=== PATIENT | female | born 2000 | race Caucasian/White ===

== ENCOUNTER 2022-04-14 04:48 | Inpatient (IN) | payer OTHER ==
[2022-04-14 05:13] LABS: Urine Blood 2+ (Negative); Urine Glucose Negative (Negative); Urine Protein 3+ (Negative); Urine Specific Gravity >=1.030 (1.005-1.030)
[2022-04-14 05:31] LABS: Urine Bacteria <20 /HPF (<20); Urine Mucus 1+ /HPF (None Seen)
[2022-04-14 05:37] LABS: Absolute Lymphocytes (CBC) 5.1 K/uL (0.7-4.9); Hematocrit 45.9 % (36.0-45.0); Lymphocytes % 40.3 % (15.3-44.8); MCV 83.5 fL (80-100); MPV 6.7 fL (7.6-11.3); RBC Red Blood Cell Count 5.51 M/uL (3.86-4.86)
[2022-04-14 05:50] LABS: Albumin 3.3 g/dL (3.4-5.0); Bilirubin Total 0.2 mg/dL (0.2-1.0); Potassium 4.3 mmol/L (3.5-5.1); Protein, Total 7.7 g/dL (6.4-8.2)
[2022-04-14] MEDS ORDERED: CEFTRIAXONE 1000 MG/VIAL ONE (06:19)
[2022-04-14] MEDS ORDERED: NA CHLORIDE 0.9% 1,000 ML ONE (06:20)
[2022-04-14] MEDS ORDERED: NA CHLORIDE 0.9% 50 ML IV ONE (06:20)
--- NOTE | 2022-04-14 06:29 | EDPHYS ---
Physician Documentation [facility] Name: Shanti Bobby Age: 21 yrs Sex: Female : 2000 Arrival Date: 04/14/2022 Time: 04:49 Bed 7 Private MD: ED Physician Sawyer Glover HPI: 04/14 04:59 This 21 yrs old Female presents to ER via EMS with complaints of abd pain. rn 04:59 The patient presents with abdominal pain in the left lower quadrant. Onset: The rn symptoms/episode began/occurred last night. The symptoms radiate to left back. Associated signs and symptoms: Pertinent positives: nausea, Pertinent negatives: blood in stools, fever, vaginal discharge, vomiting. The symptoms are described as sharp, stabbing. Modifying factors: The symptoms are alleviated by nothing, the symptoms are aggravated by touching the area. Severity of pain: At its worst the pain was moderate in the emergency department the pain is unchanged. The patient has not experienced similar symptoms in the past. The patient has not recently seen a physician. LMP November, no hx of kidney stones, no trauma. NO fever/vomiting/diarrhea.. 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 - Social history:: Smoking status: Patient reports the use of cigarette tobacco products, smokes one-half pack cigarettes per day, Patient uses alcohol, occasionally. street drugs, delta 10. - Family history:: not pertinent. - Hospitalizations: : No recent hospitalization is reported. ROS: 04:59 Constitutional: Negative for fever, chills, and weight loss, Eyes: Negative for injury, rn pain, redness, and discharge, Neck: Negative for injury, pain, and swelling, Cardiovascular: Negative for chest pain, palpitations, and edema, Respiratory: Negative for shortness of breath, cough, wheezing, and pleuritic chest pain, Abdomen/GI: + abd pain/nausea Back: Negative for injury : Negative for injury, bleeding, discharge, and swelling, MS/Extremity: Negative for injury and deformity, Skin: Negative for injury, rash, and discoloration, Neuro: Negative for headache, weakness, numbness, tingling, and seizure. Exam: 04:59 Constitutional: Overweight female, appears in pain, ambulatory to room Head/Face: rn Normocephalic, atraumatic. Cardiovascular: Tachycardic, regular Respiratory: No increased work of breathing, no retractions or nasal flaring. Abdomen/GI: soft, + tendern LLQ, no rebound Skin: Warm, dry MS/ Extremity: Pulses equal, no cyanosis. Neuro: Awake and alert, GCS 15 Vital Signs: 04:49 BP 138 / 88; Pulse 121; Resp 18 S; Temp 98.7(O); Pulse Ox 98% on R/A; Weight 163.29 kg lg3 (R); Height 5 ft. 9 in. (175.26 cm) (R); Pain 10/10; 06:19 BP 136 / 98; Pulse 112; Resp 16; Pulse Ox 97% on R/A; lg3 07:45 BP 114 / 75; Pulse 103; Resp 22; Temp 98.8; Pulse Ox 96% on R/A; vg1 04:49 Body Mass Index 53.16 (163.29 kg, 175.26 cm) lg3 MDM: 04:50 Patient medically screened. rn 06:13 ED course: Pt with elevated lactate, now meets severe sepsis criteria, source UTI, SIRS rn tachycardia and elevated WBC, (C) end organ damage is elevated at 2.1. . ED course: Abx ordered after cultures and lactate obtained. . 06:27 Differential diagnosis: Pyelonephritis, Ureterolithiasis, urinary tract infection. Data rn reviewed: vital signs, nurses notes, lab test result(s), radiologic studies, CT scan, and as a result, I will admit patient. Counseling: I had a detailed discussion with the patient and/or guardian regarding: the historical points, exam findings, and any diagnostic results supporting the discharge/admit diagnosis, lab results, radiology results, the need for further work-up and treatment in the hospital. Admission orders: after a detailed discussion of the patient's condition and case, the admit orders are written by me. 04/14 04:53 Order name: CBC with Diff; Complete Time: 05:49 rn 04/14 04:53 Order name: CMP; Complete Time: 06:00 rn 04/14 04:53 Order name: Lipase; Complete Time: 06:00 rn 04/14 04:53 Order name: Urine Microscopic Only; Complete Time: 05:36 rn 04/14 05:13 Order name: Urine Dipstick-Ancillary; Complete Time: 05:36 EDMS 04/14 05:20 Order name: Blood Culture Adult (2) rn 04/14 05:20 Order name: Lactate; Complete Time: 06:13 rn 04/14 05:36 Order name: Urine Culture rn 04/14 05:38 Order name: Urine Culture EDWY 04/14 06:47 Order name: SARS RAPID lg3 04/14 07:32 Order name: T4 Free EDWY 04/14 07:32 Order name: Thyroid Stimulating Hormone EDWY 04/14 07:32 Order name: CBC with Automated Diff EDWY 04/14 04:53 Order name: IV Saline Lock; Complete Time: 05:16 rn 04/14 04:53 Order name: Labs collected and sent; Complete Time: 05:16 rn 04/14 04:53 Order name: Urine Dipstick-Ancillary (obtain specimen); Complete Time: 05:14 rn 04/14 04:53 Order name: Urine Test (obtain specimen); Complete Time: 05:15 rn 04/14 05:14 Order name: CT Stone Protocol 04/14 07:32 Order name: Regular EDWY 04/14 07:32 Order name: CBC with Automated Diff EDWY 04/14 07:32 Order name: Comprehensive Metabolic Panel ED[facility]Y 04/14 07:32 Order name: Comprehensive Metabolic Panel ED[facility]Y 04/14 07:32 Order name: Magnesium EDMS 04/14 07:32 Order name: Magnesium EDWY 04/14 07:32 Order name: Hemoglobin A1c EDWY Administered Medications: 06:28 Drug: NS 0.9% 1000 ml Route: IV; Rate: 1000 ml; Site: right antecubital; as6 08:06 Follow up: IV Status: Completed infusion; IV Intake: 1000ml vg1 06:28 Drug: Rocephin (cefTRIAXone) 1 grams Route: IV; Rate: calculated rate; Site: right as6 antecubital; 07:54 Follow up: Response: No adverse reaction; IV Status: Completed infusion vg1 Disposition Summary: 04/14/22 06:28 Hospitalization Ordered Hospitalization Status: Inpatient Admission rn Provider: Jim Glover rn Location: Telemetry/MedSurg (Inpatient) rn Condition: Stable rn Problem: new rn Symptoms: have improved rn Bed/Room Type: Standard rn Room Assignment: 216(04/14/22 08:03) eb Diagnosis - Severe sepsis without septic shock rn - UTI/ Urinary tract infection, site not specified rn - Pyelonephritis acute rn Forms: - Medication Reconciliation Form rn - SBAR form corporate legal intern time excluding procedures: 06:27 Critical care time: Bedside Care: 30 minutes, Consultation: 5 minutes. Total time: 35 rn minutes Signatures: Dispatcher [employer] EDMS Sawyer Glover MD MD rn Botello, Elizabeth eb Gibson, Lacie, RN RN lg3 Charlie Hurd RN RN as6 Faiza Garcia RN vg1 Corrections: (The following items were deleted from the chart) 08:03 06:28 rn eb
--- NOTE | 2022-04-14 06:29 | ER ---
Nurse's Notes [facility] Name: Shanti Bobby Age: 21 yrs Sex: Female : 2000 Arrival Date: 04/14/2022 Time: 04:49 Bed 7 Private MD: Diagnosis: Severe sepsis without septic shock;UTI/ Urinary tract infection, site not specified;Pyelonephritis acute Presentation: 04/14 04:49 Chief complaint: Patient states: left lower abdominal pain radiating to the back lg3 starting around 0300. pain 10/10. described as constant stabbing pain. last menstrual cycle in November. denies fever. Coronavirus screen: Client denies travel out of the [place] in the last 14 days. At this time, the client does not indicate any symptoms associated with coronavirus-19. Ebola Screen: No symptoms or risks identified at this time. Initial Sepsis Screen: Does the patient meet any 2 criteria? No. Patient's initial sepsis screen is negative. Does the patient have a suspected source of infection? No. Patient's initial sepsis screen is negative. Risk Assessment: Do you want to hurt yourself or someone else? Patient reports no desire to harm self or others. Onset of symptoms was April 14, 2022 at 03:00. 04:49 Method Of Arrival: EMS lg3 04:49 Acuity: SETH 3 lg3 Triage Assessment: 04:54 General: Appears in no apparent distress. uncomfortable, Behavior is cooperative, lg3 crying. Pain: Complains of pain in left lower quadrant Pain radiates to back Pain currently is 10 out of 10 on a pain scale. Quality of pain is described as crushing, shooting, stabbing, Is continuous. EENT: No deficits noted. No signs and/or symptoms were reported regarding the EENT system. Neuro: No deficits noted. Lobo Agitation-Sedation Scale (RASS): 0 - Alert and Calm Level of Consciousness is awake, alert, obeys commands, Oriented to person, place, time, situation. Cardiovascular: No deficits noted. Denies chest pain, shortness of breath, Capillary refill < 3 seconds Clubbing of nail beds is absent JVD is absent Patient's skin is warm and dry. Respiratory: No deficits noted. Airway is patent Trachea midline Respiratory effort is even, unlabored, Respiratory pattern is regular, symmetrical, Breath sounds are clear bilaterally. GI: Abdomen is round non-distended, obese, Bowel sounds present X 4 quads. Abd is soft X 4 quads Abdomen is tender to palpation in left lower quadrant Reports lower abdominal pain, nausea. : No deficits noted. No signs and/or symptoms were reported regarding the genitourinary system. Derm: No deficits noted. No signs and/or symptoms reported regarding the dermatologic system. Skin is intact, is healthy with good turgor, Skin is dry, Skin is normal, Skin temperature is warm. Musculoskeletal: No deficits noted. No signs and/or symptoms reported regarding the musculoskeletal system. Circulation, motion, and sensation intact. Range of motion: intact in all extremities. 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 - Social history:: Smoking status: Patient reports the use of cigarette tobacco products, smokes one-half pack cigarettes per day, Patient uses alcohol, occasionally. street drugs, delta 10. - Family history:: not pertinent. - Hospitalizations: : No recent hospitalization is reported. Screenin:58 Abuse screen: Denies threats or abuse. Denies injuries from another. Nutritional lg3 screening: No deficits noted. Tuberculosis screening: No symptoms or risk factors identified. Fall Risk None identified. Assessment: 04:57 General: see triage assessment . lg3 06:19 Reassessment: Patient appears in no apparent distress at this time. No changes from lg3 previously documented assessment. Patient and/or family updated on plan of care and expected duration. Pain level reassessed. Patient is alert, oriented x 3, equal unlabored respirations, skin warm/dry/pink. 07:53 General: Appears in no apparent distress. comfortable, Behavior is calm, cooperative. vg1 Pain: Complains of pain in posterior aspect of left lateral abdomen and left lower quadrant Pain currently is 4 out of 10 on a pain scale. Pain began 1 day ago. Neuro: Level of Consciousness is awake, alert, obeys commands, Oriented to person, place, time, situation. Cardiovascular: Patient's skin is warm and dry. Respiratory: Airway is patent Respiratory effort is even, unlabored, Respiratory pattern is tachypnea. GI: No signs and/or symptoms were reported involving the gastrointestinal system. : Denies burning with urination, urinary frequency. EENT: No signs and/or symptoms were reported regarding the EENT system. Derm: Skin is pink, warm \T\ dry. Musculoskeletal: Circulation, motion, and sensation intact. 08:06 Reassessment: attempted to call report. vg1 Vital Signs: 04:49 BP 138 / 88; Pulse 121; Resp 18 S; Temp 98.7(O); Pulse Ox 98% on R/A; Weight 163.29 kg lg3 (R); Height 5 ft. 9 in. (175.26 cm) (R); Pain 10/10; 06:19 BP 136 / 98; Pulse 112; Resp 16; Pulse Ox 97% on R/A; lg3 07:45 BP 114 / 75; Pulse 103; Resp 22; Temp 98.8; Pulse Ox 96% on R/A; vg1 04:49 Body Mass Index 53.16 (163.29 kg, 175.26 cm) lg3 ED Course: 04:49 Patient arrived in ED. lg3 04:49 Debbi Beck is Primary Nurse. tw5 04:50 Sawyer Glover MD is Attending Physician. rn 04:54 Triage completed. lg3 04:54 Arm band placed on right wrist. lg3 04:58 Patient has correct armband on for positive identification. Placed in gown. Bed in low lg3 position. Call light in reach. Side rails up X 1. Client placed on continuous cardiac and pulse oximetry monitoring. NIBP monitoring applied. Door closed. Noise minimized. Warm blanket given. 05:10 Inserted saline lock: 20 gauge in right antecubital area, using aseptic technique. as6 Blood collected. 05:15 Urine Microscopic Only Sent. lg3 05:16 CBC with Diff Sent. lg3 05:16 CMP Sent. lg3 05:16 Lipase Sent. lg3 05:35 Lactate Sent. lg3 05:35 Blood Culture Adult (2) Sent. lg3 05:54 CT Stone Protocol In Process Unspecified. EDMS 06:17 Urine Culture Sent. lg3 06:27 Jim Glover MD is Hospitalizing Provider. rn 07:32 Primary Nurse role handed off by Debbi Beck vg1 07:32 Faiza Garcia, RN is Primary Nurse. vg1 08:16 No provider procedures requiring assistance completed. Patient admitted, IV remains in vg1 place. Administered Medications: 06:28 Drug: NS 0.9% 1000 ml Route: IV; Rate: 1000 ml; Site: right antecubital; as6 08:06 Follow up: IV Status: Completed infusion; IV Intake: 1000ml vg1 06:28 Drug: Rocephin (cefTRIAXone) 1 grams Route: IV; Rate: calculated rate; Site: right as6 antecubital; 07:54 Follow up: Response: No adverse reaction; IV Status: Completed infusion vg1 Medication: 06:28 VIS not applicable for this client. as6 Intake: 08:06 IV: 1000ml; Total: 1000ml. vg1 Outcome: 06:28 Decision to Hospitalize by Provider. rn 08:15 Admitted to Med/surg accompanied by tech, via wheelchair, room 216, with chart, Report vg1 called to Tamika KASPER 08:15 Condition: good 08:15 Discharge instructions given to patient, Instructed on the need for admit. 08:29 Patient left the ED. vg1 Signatures: Dispatcher [employer] EDMS Sawyer Glover MD MD rn Gibson, Lacie, RN RN lg3 Faiza Garcia, RN RN vg1 Debbi Beck tw5 Charlie Hurd RN RN as6
[2022-04-14 07:10] LABS: SARS-CoV-2 Antigen Rapid Res Negative (Negative)
[2022-04-14] MEDS ORDERED: ONDANSETRON 4 MG/2 ML VIAL IV PRN ×2 (07:28→07:32)
--- NOTE | 2022-04-14 07:35 | P.HP ---
Certification for Inpatient Patient admitted to: Inpatient With expected LOS: >2 Midnights Practitioner: I am a practitioner with admitting privileges, knowledge of patient current condition, hospital course, and medical plan of care. Services: Services provided to patient in accordance with Admission requirements found in Title 42 Section 412.3 of the Code of Federal Regulations Patient History Date of Service: 04/14/22 Reason for admission: sepsis, acute pyelo History of Present Illness: 21yo F, PMH: RA Presents to ED due to 1 day of left abdominal/flank pain. Pain worse with movement. Nothing has helped. Left lower abdomen and radiates towards back. No nausea/vomiting, +Chills. Denies any sick contacts. Never had pain like this before. Workup in ED consistent with sepsis secondary to UTI. Cultures obtained, started rocephin, and IV fluids. Allergies No Known Allergies Allergy (Unverified 04/14/22 08:14) Home Medications: NK [No Home Meds] 04/14/22 - Past Medical/Surgical History -: RA Past Surgical History: Patient denies surgical history - Family History Family History: Reviewed- Non-Contributory - Social History Smoking Status: Current every day smoker Alcohol use: Yes Place of Residence: Home Review of Systems 10-point ROS is otherwise unremarkable Physical Examination - Physical Exam General: Alert, Mild distress HEENT: EOMI, Sclerae nonicteric Neck: Supple, No LAD Respiratory: Clear to auscultation bilaterally, Normal air movement Cardiovascular: No edema, Regular rate/rhythm Capillary refill: <2 Seconds Gastrointestinal: Soft and benign, Tenderness (LLQ/L flank) Musculoskeletal: No erythema, No tenderness Integumentary: No rashes, No significant lesion Neurological: Normal speech, Normal strength at 5/5 x4 extr, Normal affect - Studies Laboratory Data (last 24 hrs) 04/14/22 05:14: Sodium 137, Potassium 4.3, BUN 15, Creatinine 0.72, Glucose 110 H, Total Bilirubin 0.2, AST 31, ALT 68, Alkaline Phosphatase 58, Lipase 98 04/14/22 05:14: WBC 12.80 H, Hgb 15.3 H, Hct 45.9 H, Plt Count 363 Assessment and Plan - Advance Directives Does patient have a Living Will: No Does patient have a Durable POA for Healthcare: No Physician Review Additional Text: Problem List Acute pyelonephritis Sepsis, without septic shock cultures obtained in ED tachycardic, leukocytosis, lactic acidosis f/u repeat lactate - improved s/p 1L bolus IV rocephin IVF pain meds as needed f/u cultures VTE: lovenox Code: full Dispo: home, 2-3 days Time Spent Managing Pts Care (In Minutes): 70
[2022-04-14 08:54] LABS: Thyroid Stimulating Hormone 5.9 uIU/mL (0.360-3.740)
[2022-04-14] MEDS: ENOXAPARIN 40 MG/0.4 ML SQ SCH (09:00)
[2022-04-14] MEDS: MORPHINE 2 MG/ML SYR IV PRN ×3 (09:53→21:15)
[2022-04-14 10:07] VITALS: BMI 53.1
[2022-04-14] MEDS: Ringers Lactate 1,000 ML IV SCH (21:18)
[2022-04-15 03:34] LABS: Absolute Lymphocytes (CBC) 3.5 K/uL (0.7-4.9); Lymphocytes % 34.8 % (15.3-44.8); MCV 82.8 fL (80-100); MPV 6.8 fL (7.6-11.3); RBC Red Blood Cell Count 5.07 M/uL (3.86-4.86)
[2022-04-15 03:51] LABS: Bilirubin Total 0.4 mg/dL (0.2-1.0); Magnesium 1.9 mg/dL (1.8-2.4); Potassium 4.2 mmol/L (3.5-5.1); Protein, Total 7.1 g/dL (6.4-8.2)
[2022-04-15] MEDS: Ringers Lactate 1,000 ML IV SCH (04:58)
[2022-04-15] MEDS: HYDROCODONE/APAP 5/325 MG TAB PO PRN ×2 (05:06→12:08)
--- NOTE | 2022-04-15 06:31 | P.PN ---
Date of Service: 04/15/22 Subjective: requiring IV pain medication but pain overall improving no nausea/vomiting afebrile overnight ROS: 10 point ROS as noted above, otherwise negative Physical exam GEN: Alert, oriented, NAD, obese HEENT: Normal conjunctiva, sclera anicteric CV: Regular rate and rhythm, no edema Pulm: Nonlabored respirations on room air ABD: Soft, mildmoderate tenderness of left flank Neuro: Normal speech, normal affect Vitals reviewed Problem List Acute L pyelonephritis Sepsis, without septic shock Acute L pyelonephritis Urine Cx: +GNR Blood Cx: prelim negative vitals improved, slightly tachy still pain improving tolerating PO, dc IVF Continue IV Rocephin Pain medication as needed VTE: Xarelto DVT prophylaxis Code: full Dispo: home, 1-2 days Time Spent Managing Pts Care (In Minutes): 35
[2022-04-15] MEDS ORDERED: CEFTRIAXONE 1000 MG/VIAL ONE (08:08)
[2022-04-15] MEDS ORDERED: NA CHLORIDE 0.9% 50 ML ONE (08:15)
[2022-04-15] MEDS: CEFTRIAXONE 1,000 MG in NA CHLORIDE 0.9% 50 ML IVPB SCH (08:46)
[2022-04-15] MEDS: ENOXAPARIN 40 MG/0.4 ML SQ SCH (08:47)
[2022-04-15 09:13] VITALS: O2SAT 98
[2022-04-16] MEDS: HYDROCODONE/APAP 5/325 MG TAB PO PRN (01:38)
[2022-04-16 05:40] LABS: Magnesium 1.8 mg/dL (1.8-2.4); Potassium 4.1 mmol/L (3.5-5.1)
[2022-04-16] MEDS: CEFTRIAXONE 1,000 MG in NA CHLORIDE 0.9% 50 ML IVPB SCH (08:26)
[2022-04-16] MEDS ORDERED: RIVAROXABAN 10 MG TABLET PO SCH (09:00)
[2022-04-16] MEDS ORDERED: levoFLOXacin 750 MG TAB PO SCH (09:00)
[2022-04-16 09:05] VITALS: BP 149/91; TEMP 96.8
--- NOTE | 2022-04-16 14:24 | P.DS ---
Admission Date: 04/14/22 Discharge Date: 04/16/22 Disposition: ROUTINE DISCHARGE Discharge Condition: GOOD Reason for Admission: sepsis, acute pyelo Brief History of Present Illness: 21yo F, PMH: RA Presents to ED due to 1 day of left abdominal/flank pain. Pain worse with movement. Nothing has helped. Left lower abdomen and radiates towards back. No nausea/vomiting, +Chills. Denies any sick contacts. Never had pain like this before. Workup in ED consistent with sepsis secondary to UTI. Cultures obtained, started rocephin, and IV fluids. Hospital Course: Problem List Acute L pyelonephritis Sepsis, without septic shock; resolved Morbid obesity Patient was found to have a UTI, with left ascending infection / acute pyelonephritis. She had improvement with IV fluids, antibiotics, and pain control. She remained afebrile, leukocytosis resolved, blood cultures negative, and urine culture grew e.coli. Deemed stable for discharge home. 10 days of levaquin for UTI. Follow up with PCP within 1 week TSH was mildly elevated at 5.9, normal T3 (0.93). Recommend repeat thyroid studies in ~6 months Vital Signs/Physical Exam: Temp Pulse Resp BP Pulse Ox 96.8 F 100 H 18 149/91 H 99 04/16/22 08:00 04/16/22 08:00 04/16/22 08:00 04/16/22 08:00 04/16/22 08:00 Physical exam GEN: Alert, oriented, NAD, obese HEENT: Normal conjunctiva, sclera anicteric CV: Regular rate and rhythm, no edema Pulm: Nonlabored respirations on room air ABD: Soft, minimal tenderness of left flank, no CVA tenderness Neuro: Normal speech, normal affect Laboratory Data at Discharge: WBC 10.10 K/uL (4.3-10.9) 04/15/22 03:05 Hgb 14.2 g/dL (12.0-15.0) 04/15/22 03:05 Hct 42.0 % (36.0-45.0) 04/15/22 03:05 Plt Count 289 K/uL (152-406) 04/15/22 03:05 Sodium 135 mmol/L (136-145) L 04/16/22 05:04 Potassium 4.1 mmol/L (3.5-5.1) 04/16/22 05:04 BUN 10 mg/dL (7-18) 04/16/22 05:04 Creatinine 0.62 mg/dL (0.55-1.3) 04/16/22 05:04 Glucose 97 mg/dL (74-106) 04/16/22 05:04 Magnesium 1.8 mg/dL (1.8-2.4) 04/16/22 05:04 Total Bilirubin 0.4 mg/dL (0.2-1.0) 04/15/22 03:05 AST 35 U/L (15-37) 04/15/22 03:05 ALT 68 U/L (12-78) 04/15/22 03:05 Alkaline Phosphatase 49 U/L (45-117) 04/15/22 03:05 Lipase 98 U/L (73-393) 04/14/22 05:14 Home Medications: Tramadol HCl [Ultram] 50 mg PO Q6H PRN #10 tab 04/16/22 levoFLOXacin [Levaquin] 750 mg PO DAILY 10 Days #10 tab 04/16/22 New Medications: levoFLOXacin [Levaquin] 750 mg PO DAILY 10 Days #10 tab Tramadol HCl [Ultram] 50 mg PO Q6H PRN #10 tab PRN Reason: Pain Scale 5-7 (Moderate) Physician Discharge Instructions: Patient was found to have a UTI, with left ascending infection / acute pyelonephritis. She had improvement with IV fluids, antibiotics, and pain control. She remained afebrile, leukocytosis resolved, blood cultures negative, and urine culture grew e.coli. Deemed stable for discharge home. 10 days of levaquin for UTI. Follow up with PCP within 1 week TSH was mildly elevated at 5.9, normal T3 (0.93). Recommend repeat thyroid studies in ~6 months Time spent managing pt's care (in minutes): 45
--- NOTE | 2022-04-18 12:36 | RAD REPORT ---
EXAM DESCRIPTION: CT - Stone Protocol - 04/14/2022 5:52 am CLINICAL HISTORY: Left flank pain COMPARISON: None TECHNIQUE: Contiguous axial sections of the abdomen and pelvis were obtained without intravenous con trast. This exam was performed according to our departmental dose-optimization program, which include s automated exposure control, adjustment of the mA and/or kV according to patient size and/or use of iterative reconstruction technique. FINDINGS: Lower Chest: Subpleural left lower lobe nodule measuring 7.6 x 4.9 mm. There is a halo of groundglass surrounding the nodule. This may reflect infectious origin although remains indeterminate . Organs: The liver is fatty infiltrated. The liver is enlarged measuring 24.4 cm. The spleen, gallblad adair, pancreas, adrenal glands, and kidneys are normal. GI/Bowel: There are no findings of small bowel obstruction. No acute bowel wall inflammatory changes. The appendix is normal. Pelvis: The bladder and rectum are normal. No pelvic free fluid. No pelvic lymphadenopathy. Peritoneum/Retroperitoneum: No free fluid or free air. No mesenteric or retroperitoneal lymphadenopat hy. Bones/Soft Tissues: There are no suspicious-appearing lytic or blastic osseous lesions. IMPRESSION: No renal or ureteral calculi. Enlarged, fatty liver. 7.6 x 4.9 mm left lower lobe pulmonary nodule with surrounding groundglass density. This may relate t o an infectious/inflammatory nodule. RECOMMENDATIONS: Electronically signed by: Obi Tse MD 04/14/2022 6:21 AM CDT Due to temporary technical issues with the PACS/Fluency reporting system, reports are being signed by the in house radiologists without review as a courtesy to insure prompt reporting. The interpreting radiologist is fully responsible for the content of the report.
== END 2022-04-16 10:16 | disposition home or self-care (01) | DRG 872 ==
LOC: ER 04:48 → ERHOLD 07:27 → 2ND 08:15
PROVIDERS: ADMIT Hospitalist; ATTEND Hospitalist
DX: A41.51 Sepsis due to Escherichia coli [E. coli] (principal); N10 Acute pyelonephritis; Z68.43 Body mass index [BMI] 50.0-59.9, adult; R65.20 Severe sepsis without septic shock; E66.01 Morbid (severe) obesity due to excess calories; F17.210 Nicotine dependence, cigarettes, uncomplicated; Z79.899 Other long term (current) drug therapy; Z20.822 Contact with and (suspected) exposure to COVID-19
CPT/HCPCS: 36415; 74176; 76377; 80048; 80053; 81003; 81015; 83036; 83605; 83690; 83735; 84439; 84443; 85025; 87040; 87077; 87086; 87088; 87186; 87811; 94760; 96365; 99285; J1650; J2270; J7030; J7120